=== PATIENT | male | born 1950 | race Caucasian/White ===

== ENCOUNTER → 2018-03-04 | Outpatient (CLI) | payer MEDICARE, OTHER ==
[~2018-03-04] MED LIST: BUPR1TAB2 SL; CYCL10TA29 PO; FURO-45 PO; LEVO88TA45 PO; METF-411 PO; MIRT45TA66 PO; MONT10TA4 PO; POTA99TA6 PO; VENL50TA23 PO
[2018-03-04 11:05] LABS: PLATELET COUNT, AUTOMATED 337 K/uL (150-450)
[2018-03-04 11:16] LABS: LDL CHOLESTEROL 107 mg/dl
== END ==
LOC: LAB 10:40
PROVIDERS: ATTEND Internal Medicine
DX: Z12.5 Encounter for screening for malignant neoplasm of prostate (principal); E11.9 Type 2 diabetes mellitus without complications
CPT/HCPCS: 36415; 81001; 83036; 84443; 85025; G0103; 82040; 82247; 82310; 82374; 82435; 82465; 82565; 82947; 83718; 84075; 84132; 84153; 84155; 84295; 84450; 84460; 84478; 84520

== ENCOUNTER 2018-03-19 15:12 | Emergency (ER) | payer MEDICARE, OTHER ==
--- NOTE | 2018-03-19 15:23 | ER Report ---
History and Physical Time Seen By MD: 15:23 HPI/ROS CHIEF COMPLAINT: abdominal pain HISTORY OF PRESENT ILLNESS: Patient is a 68-year-old male here with complaints of diffuse abdominal pain and abdominal distention consistent with prior colonic impactions. Patient reports his last bowel movement was approximately 4 days ago and that he has now stopped passing flatus. He reports back spasms, nausea, severe pain. Patient denies fevers, chills, chest pain, shortness of breath. He endorses nausea, diffuse abdominal pain. Patient is afebrile and HD stable at time of evaluation. REVIEW OF SYSTEMS: Constitutional: No fever, no chills. + abdominal pain Eyes: No discharge. ENT: No sore throat. Cardiovascular: No chest pain, no palpitations. Respiratory: No cough, no shortness of breath. Gastrointestinal: + diffuse abdominal pain and abdominal distension, no vomiting. Genitourinary: No hematuria. Musculoskeletal: + back pain and spasms. Skin: No rashes. Neurological: No headache. Allergies: Coded Allergies: tramadol (Verified Adverse Reaction, Unknown, 03/19/18) Home Meds Reported Medications Cyclobenzaprine Hcl (CYCLOBENZAPRINE HCL) Unknown Strength Tablet, PO TID, #9 TAB 03/02/18 Mirtazapine (MIRTAZAPINE) 45 Mg Tablet, 45 MG PO BID 03/02/18 Levothyroxine Sodium (LEVOTHYROXINE SODIUM) 88 Mcg Tablet, 88 MCG PO QDAY 03/02/18 Buprenorphine Hcl/Naloxone Hcl (BUPRENORPHIN-NALOXON 8-2 MG TB) Unknown Strength Tab.subl, SL QDAY 03/02/18 Venlafaxine Hcl (VENLAFAXINE HCL) 50 Mg Tablet, 50 MG PO BID 03/02/18 Furosemide (FUROSEMIDE) Unknown Strength Tablet, PO Q6H, TAB 03/02/18 Montelukast Sodium (MONTELUKAST SODIUM) 10 Mg Tablet, 1 TAB PO QDAY, TAB 03/02/18 Metformin Hcl (METFORMIN HCL) 500 Mg Tablet, 1 TAB PO BID, TAB 03/02/18 Potassium Gluconate (POTASSIUM) 99 Mg Tablet, 99 MG PO 03/02/18 Smoking Status: Former Smoker Constitutional Vital Sign - Last 24 Hours 03/19/18 03/19/18 03/19/18 03/19/18 15:15 15:19 16:03 16:06 Temp 98.4 Pulse 130 Resp 26 B/P (MAP) 117/79 117/79 (92) 146/90 (108) Pulse Ox 97 O2 Delivery Room Air O2 Flow Rate 4.0 03/19/18 03/19/18 03/19/18 03/19/18 16:12 16:30 17:00 17:05 Pulse 67 66 B/P (MAP) 150/96 (114) 155/81 (105) Pulse Ox 94 96 03/19/18 03/19/18 17:10 18:26 Pulse 69 60 B/P (MAP) 142/82 (102) Pulse Ox 95 92 O2 Flow Rate 0 Physical Exam General Appearance: The patient is alert, has no immediate need for airway protection and no signs of toxicity. + distress due to abdominal pain, back spasms Eyes: Pupils equal and round no pallor or injection. ENT, Mouth: Mucous membranes are moist. Respiratory: There are no retractions, lungs are clear to auscultation. Cardiovascular: Regular rate and rhythm. Gastrointestinal: Abdomen is + distended and diffusely tender on exam Neurological: No focal neuro deficits Skin: Warm and dry, no rashes. Musculoskeletal: Neck is supple non tender. Extremities are nontender, nonswollen and have full range of motion. DIFFERENTIAL DIAGNOSIS: After history and physical exam differential diagnosis was considered for abdominal pain including but not limited to appendicitis, cholecystitis, gastritis and urinary tract infection. Medical Decision Making Data Points Result Diagram: 03/19/18 1547 03/19/18 1547 Laboratory Hematology Test 03/19/18 15:47 03/19/18 16:59 Red Blood Count 5.12 M/uL (4.00-5.60) Mean Corpuscular Volume 96.4 fL (80.0-96.0) Mean Corpuscular Hemoglobin 33.0 pg (26.0-33.0) Mean Corpuscular Hemoglobin Concent 34.2 g/dL (32.0-36.0) Red Cell Distribution Width 12.5 % (11.5-14.5) Mean Platelet Volume 9.9 fL (7.2-11.1) Neutrophils (%) (Auto) 52.9 % (39.4-72.5) Lymphocytes (%) (Auto) 36.7 % (17.6-49.6) Monocytes (%) (Auto) 7.0 % (4.1-12.4) Eosinophils (%) (Auto) 2.3 % (0.4-6.7) Basophils (%) (Auto) 1.1 % (0.3-1.4) Nucleated RBC Relative Count (auto) 0.0 /100WBC Neutrophils # (Auto) 5.4 K/uL (2.0-7.4) Lymphocytes # (Auto) 3.7 K/uL (1.3-3.6) Monocytes # (Auto) 0.7 K/uL (0.3-1.0) Eosinophils # (Auto) 0.2 K/uL (0.0-0.5) Basophils # (Auto) 0.1 K/uL (0.0-0.1) Nucleated RBC Absolute Count (auto) 0.00 K/uL Prothrombin Time 12.5 seconds (12.0-14.4) Prothromb Time International Ratio 0.93 Activated Partial Thromboplast Time 26 seconds (23-35) Sodium Level 144 mmol/L (137-145) Potassium Level 3.9 mmol/L (3.5-5.0) Chloride Level 103 mmol/L (98-107) Carbon Dioxide Level 22 mmol/L (22-30) Blood Urea Nitrogen 6 mg/dl (9-21) Creatinine 0.70 mg/dl (0.66-1.25) Glomerular Filtration Rate Calc > 60.0 Random Glucose 156 mg/dl (75-110) Calcium Level 9.7 mg/dl (8.4-10.2) Total Bilirubin 0.8 mg/dl (0.2-1.3) Aspartate Amino Transf (AST/SGOT) 119 U/L (0-35) Alanine Aminotransferase (ALT/SGPT) 124 U/L (0-56) Alkaline Phosphatase 148 U/L (0-126) Total Protein 7.9 g/dl (6.3-8.2) Albumin 4.3 g/dl (3.5-5.0) Lipase 111 U/L (23-300) Urine Color Yellow Urine Clarity Slightly-cloudy Urine pH 7.0 pH (4.8-9.5) Urine Specific Hardy 1.017 Urine Protein Negative mg/dL (NEGATIVE) Urine Glucose (UA) Negative mg/dL (NEGATIVE) Urine Ketones Negative mg/dL (NEGATIVE) Urine Blood Negative (NEGATIVE) Urine Nitrite Negative (NEGATIVE) Urine Bilirubin Negative (NEGATIVE) Urine Urobilinogen 2.0 mg/dL (0.2-1.9) Urine Leukocyte Esterase Negative (NEGATIVE) Urine RBC <1 /HPF (0-2/HPF) Urine WBC 1 /HPF (0-5/HPF) Urine Squamous Epithelial Cells None /LPF (</=FEW) Urine Amorphous Crystals Few /HPF Urine Bacteria Negative /HPF (NONE-FEW) Urine Mucus Few /HPF (NONE-FEW) Chemistry Test 03/19/18 15:47 03/19/18 16:59 White Blood Count 10.2 k/uL (4.5-11.0) Red Blood Count 5.12 M/uL (4.00-5.60) Hemoglobin 16.9 g/dL (14.0-18.0) Hematocrit 49.4 % (42.0-52.0) Mean Corpuscular Volume 96.4 fL (80.0-96.0) Mean Corpuscular Hemoglobin 33.0 pg (26.0-33.0) Mean Corpuscular Hemoglobin Concent 34.2 g/dL (32.0-36.0) Red Cell Distribution Width 12.5 % (11.5-14.5) Platelet Count 284 K/uL (150-450) Mean Platelet Volume 9.9 fL (7.2-11.1) Neutrophils (%) (Auto) 52.9 % (39.4-72.5) Lymphocytes (%) (Auto) 36.7 % (17.6-49.6) Monocytes (%) (Auto) 7.0 % (4.1-12.4) Eosinophils (%) (Auto) 2.3 % (0.4-6.7) Basophils (%) (Auto) 1.1 % (0.3-1.4) Nucleated RBC Relative Count (auto) 0.0 /100WBC Neutrophils # (Auto) 5.4 K/uL (2.0-7.4) Lymphocytes # (Auto) 3.7 K/uL (1.3-3.6) Monocytes # (Auto) 0.7 K/uL (0.3-1.0) Eosinophils # (Auto) 0.2 K/uL (0.0-0.5) Basophils # (Auto) 0.1 K/uL (0.0-0.1) Nucleated RBC Absolute Count (auto) 0.00 K/uL Prothrombin Time 12.5 seconds (12.0-14.4) Prothromb Time International Ratio 0.93 Activated Partial Thromboplast Time 26 seconds (23-35) Glomerular Filtration Rate Calc > 60.0 Calcium Level 9.7 mg/dl (8.4-10.2) Total Bilirubin 0.8 mg/dl (0.2-1.3) Aspartate Amino Transf (AST/SGOT) 119 U/L (0-35) Alanine Aminotransferase (ALT/SGPT) 124 U/L (0-56) Alkaline Phosphatase 148 U/L (0-126) Total Protein 7.9 g/dl (6.3-8.2) Albumin 4.3 g/dl (3.5-5.0) Lipase 111 U/L (23-300) Urine Color Yellow Urine Clarity Slightly-cloudy Urine pH 7.0 pH (4.8-9.5) Urine Specific Hardy 1.017 Urine Protein Negative mg/dL (NEGATIVE) Urine Glucose (UA) Negative mg/dL (NEGATIVE) Urine Ketones Negative mg/dL (NEGATIVE) Urine Blood Negative (NEGATIVE) Urine Nitrite Negative (NEGATIVE) Urine Bilirubin Negative (NEGATIVE) Urine Urobilinogen 2.0 mg/dL (0.2-1.9) Urine Leukocyte Esterase Negative (NEGATIVE) Urine RBC <1 /HPF (0-2/HPF) Urine WBC 1 /HPF (0-5/HPF) Urine Squamous Epithelial Cells None /LPF (</=FEW) Urine Amorphous Crystals Few /HPF Urine Bacteria Negative /HPF (NONE-FEW) Urine Mucus Few /HPF (NONE-FEW) Coagulation Test 03/19/18 15:47 Prothrombin Time 12.5 seconds Prothromb Time International Ratio 0.93 Activated Partial Thromboplast Time 26 seconds Urinalysis Test 03/19/18 16:59 Urine Color Yellow Urine Clarity Slightly-cloudy Urine pH 7.0 pH (4.8-9.5) Urine Specific Hardy 1.017 Urine Protein Negative mg/dL (NEGATIVE) Urine Glucose (UA) Negative mg/dL (NEGATIVE) Urine Ketones Negative mg/dL (NEGATIVE) Urine Blood Negative (NEGATIVE) Urine Nitrite Negative (NEGATIVE) Urine Bilirubin Negative (NEGATIVE) Urine Urobilinogen 2.0 mg/dL (0.2-1.9) Urine Leukocyte Esterase Negative (NEGATIVE) Urine RBC <1 /HPF (0-2/HPF) Urine WBC 1 /HPF (0-5/HPF) Urine Squamous Epithelial Cells None /LPF (</=FEW) Urine Amorphous Crystals Few /HPF Urine Bacteria Negative /HPF (NONE-FEW) Urine Mucus Few /HPF (NONE-FEW) EKG/Imaging Imaging Examination: ACUTE ABDOMEN SERIES 3 VIEW Comparison: None. History: Abdomen pain. Findings: Indistinct parenchymal density and questionable architectural distortion in the left mid and lower lung. Questionable 2 x 1 cm nodule in the left upper lung. No pneumothorax, edema, or effusion. Cardiac and hilar contour size is normal. No pneumoperitoneum. Bowel gas pattern is unremarkable. Small to moderate amount of stool in the colon. No soft tissue calcifications. Osseous structures are intact with minimal degenerative change. IMPRESSION: 1. Indistinct density throughout the left midlung with questionable architectural distortion is suggestive of chronicity although correlation with any clinical evidence of acute infection is recommended. 2. Questionable 2 x 1 cm nodule in the left upper lung. Given the other parenchymal findings this could be a region of scarring or potentially a pleural plaque. A pulmonary nodule remains a possibility and if available, comparison to a prior study to evaluate for interval change would be of benefit. Alternatively, this could be further characterized by chest CT. 3. No pneumatosis or evidence of bowel obstruction. ED Course/Re-evaluation ED Course Patient is a 68-year-old male here with complaints of abdominal pain and abdominal distention, consistent with prior colon impactions. Patient usually uses MiraLAX however did not this time. His last problem was approximately 4 days ago and he stopped passing flatus last 24 hours. X-ray showed moderate stool burden without signs of bowel obstruction. Labs were unremarkable. Patient was given Dilaudid and in the spasmodic in the form of Valium as well as antiemetic with moderate relief of symptoms. Patient was also given enemas with moderate relief of stool burden. She was advised to adopt a bowel regimen at home to avoid impactions in the future. Patient voiced understanding. Decision to Disposition Date: Mar 19, 2018 Decision to Disposition Time: 18:15 Depart Departure Latest Vital Signs Vital Signs Date Time Temp Pulse Resp B/P (MAP) Pulse Ox O2 Delivery O2 Flow Rate FiO2 6/16/18 18:26 60 142/82 (102) 92 0 03/19/18 15:15 98.4 26 Room Air Impression: Primary Impression: Constipation Condition: Improved Disposition: HOME OR SELF-CARE Referrals: TAY ABDULLAHI MD (PCP) Patient Instructions: Constipation (ED) Additional Instructions: Please consider including MiraLAX, stool softeners, fiber to your diet in order to avoid bowel obstructions and impactions. Please follow-up with your family doctor in the next week for repeat lab work. JOEY REGALADO DO Mar 19, 2018 15:23
[2018-03-19] MEDS ORDERED: NS(*) 0.9% 1000 ML BAG 1,000 ML IV ONE (15:34)
[2018-03-19] MEDS ORDERED: METOCLOPRAMIDE 10 MG/2 ML SDV IVP ONE (15:35)
[2018-03-19] MEDS ORDERED: DIAZEPAM 50 MG/10 ML MDV IM ONE (15:35)
[2018-03-19] MEDS ORDERED: HYDROmorphone* 1 MG/ML 1 MG/ML ML IVP ONE (15:35)
[2018-03-19] MEDS ORDERED: DIAZEPAM 50 MG/10 ML MDV IVP ONE (15:55)
[2018-03-19 16:15] LABS: PLATELET COUNT, AUTOMATED 284 K/uL (150-450)
[2018-03-19 16:23] LABS: INR 0.93
--- NOTE | 2018-03-19 17:18 | RADIOLOGY IMAGING REPORT ---
FACILITY: [facility] PATIENT NAME: Michael Holland : 1950 MR: [id number] V: [id number] EXAM DATE: ORDERING PHYSICIAN: JOEY REGALADO TECHNOLOGIST: Location: [facility] Patient: Michael Holland : 1950 Visit/Account:[id number] Date of Sevice: 03/19/2018 Examination: ACUTE ABDOMEN SERIES 3 VIEW Comparison: None. History: Abdomen pain. Findings: Indistinct parenchymal density and questionable architectural distortion in the left mid an d lower lung. Questionable 2 x 1 cm nodule in the left upper lung. No pneumothorax, edema, or effusio n. Cardiac and hilar contour size is normal. No pneumoperitoneum. Bowel gas pattern is unremarkable. Small to moderate amount of stool in the colo n. No soft tissue calcifications. Osseous structures are intact with minimal degenerative change. IMPRESSION: 1. Indistinct density throughout the left midlung with questionable architectural distortion is sugge stive of chronicity although correlation with any clinical evidence of acute infection is recommended . 2. Questionable 2 x 1 cm nodule in the left upper lung. Given the other parenchymal findings this cou ld be a region of scarring or potentially a pleural plaque. A pulmonary nodule remains a possibility and if available, comparison to a prior study to evaluate for interval change would be of benefit. Al ternatively, this could be further characterized by chest CT. 3. No pneumatosis or evidence of bowel obstruction. Report Dictated By: Oscar Chung MD at 03/19/2018 5:06 PM Report E-Signed By: Oscar Chung MD at 03/19/2018 5:14 PM [id number]
[2018-03-19 18:26] VITALS: BP 142/82
== END 2018-03-19 18:21 | disposition home or self-care (01) ==
LOC: ER 15:23
DX: K59.00 Constipation, unspecified (principal)
CPT/HCPCS: 74022; 81001; 83690; 85025; 85610; 85730; 96374; 96375; 99284; J1170; J2765; J3360; 82040; 82247; 82310; 82374; 82435; 82565; 82947; 84075; 84132; 84155; 84295; 84450; 84460; 84520